=== PATIENT | female | born 1980 | race Caucasian/White ===

== ENCOUNTER → 2020-05-16 10:35 | Outpatient (BNVA) | payer BC, SELFPAY | PROVIDERS: Family Provider Electrodiagnostic Medicine; PCP Electrodiagnostic Medicine; Visit Provider Nurse Practitioner | DX: J02.9 Acute pharyngitis, unspecified (principal); F17.210 Nicotine dependence, cigarettes, uncomplicated | CPT/HCPCS: 87071; 87880 ==

== ENCOUNTER → 2020-10-24 12:22 | Outpatient (BNVA) | payer BC, SELFPAY | PROVIDERS: Family Provider Electrodiagnostic Medicine; PCP Electrodiagnostic Medicine; Visit Provider Nurse Practitioner | DX: J02.9 Acute pharyngitis, unspecified (principal) | CPT/HCPCS: 87071; 87880 ==

== ENCOUNTER → 2022-08-04 08:18 | Outpatient (BNVA) | payer BC, SELFPAY | PROVIDERS: PCP Electrodiagnostic Medicine; Referring Provider Dermatology; Visit Provider Podiatrist Foot & Ankle Surgery | DX: M84.375A Stress fracture, left foot, initial encounter for fracture (principal); R60.9 Edema, unspecified; M85.872 Other specified disorders of bone density and structure, left ankle and foot | CPT/HCPCS: 73630 ==

== ENCOUNTER → 2022-08-25 08:21 | Outpatient (BNVA) | payer BC, SELFPAY | PROVIDERS: PCP Electrodiagnostic Medicine; Visit Provider Podiatrist Foot & Ankle Surgery | DX: M84.375A Stress fracture, left foot, initial encounter for fracture (principal); M85.879 Other specified disorders of bone density and structure, unspecified ankle and foot; R60.9 Edema, unspecified | CPT/HCPCS: 73630 ==

== ENCOUNTER → 2023-07-05 13:10 | Outpatient (BNVA) | payer BC, SELFPAY | PROVIDERS: PCP Electrodiagnostic Medicine; Visit Provider Registered Nurse Neonatal Intensive Care | DX: S99.922A Unspecified injury of left foot, initial encounter (principal); X58.XXXA Exposure to other specified factors, initial encounter | CPT/HCPCS: 73610; 73630 ==

== ENCOUNTER 2024-09-02 12:05 | Outpatient (CLI) | payer BC, SELFPAY ==
--- NOTE | 2024-09-02 12:08 | MR_ITS ---
WS: [id number] MRI LEFT ANKLE WITH AND WITHOUT CONTRAST. COMPARISON: Radiographs 07/05/2023, 08/06/2024 Multiplanar, multisequence imaging is performed with and without contrast. MultiHance 13 mL IV. Distal tibia: Marrow edema in the distal tibia extends over a length of 4.5 cm to the tibial plafond. Lucency on the proton density and the T1 sequences extends partially through the distal lateral tibi a consistent with a fracture. This is probably partially healed. Severe narrowing of the tibiotalar j oint space. Small osteochondral defect along the tibial plafond. Very small low signal nodule in the medial tibiotalar joint space is probably a loose body. There is fluid and increased T2 signal along the syndesmosis and interosseous membrane. No marrow emil ma in the fibula. Calcaneus: Lucency seen radiographically in the calcaneus follows fat on all sequences without enhanc ement. 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 Normal Achilles tendon. Normal plantar fascia. Peroneal brevis and longus tendons extend along the normal course. No tear is identified. Flexor hallucis longus and the flexor hallucis and digitorum tendons are appropriate. Posterior tibia l tendon is normal. There is a large accessory navicular measuring 10 x 9 mm. This accessory navicular is slightly displa daren in the posterior tibial tendon but at this time there is no tear. Patient is at risk for posterio r tibial dysfunction. Enlarged sustentaculum mack. 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 Fluid along the anterior talofibular ligament. There is at least a partial tear. Posterior talofibula r ligament is normal. Normal appearance of the deltoid ligament. Spring ligament is identified extend ing from the navicular to the sustentaculum mack. The signal is normal but it is displaced by the la rge sustentaculum mack. MR/MR ankle LT wo/w con [id number] IMPRESSION: 1. Marrow edema in the distal tibia with an incomplete and partially healed fr acture in the tibial metaphysis. 2. Fluid in the interosseous membrane consistent with a syndesmosis injury. 3. Calcaneal lipoma. 4. Severe narrowing of the tibiotalar joint. Possible very tiny loose body in the medial tibiotalar joint. 5. 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 At this time the posterior tibial tendon is normal. Patient at risk fo r posterior tibial tendon dysfunction. 6. Markedly enlarged sustentaculum mack. 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 Obtaining a noncontrast CT of the LEFT foot may provide additional information. 7. Partial tear anterior talofibular ligament.
[2024-09-02] MEDS: gadobenate dimeglumine 20 mL vial IV (13:08)
== END 2024-09-02 12:06 | disposition home or self-care (01) ==
LOC: RAD 12:07
PROVIDERS: PCP Electrodiagnostic Medicine; Visit Provider Electrodiagnostic Medicine
DX: M85.60 Other cyst of bone, unspecified site (principal); D17.24 Benign lipomatous neoplasm of skin and subcutaneous tissue of left leg; M25.871 Other specified joint disorders, right ankle and foot; M89.372 Hypertrophy of bone, left ankle and foot
CPT/HCPCS: 73723

== ENCOUNTER 2024-09-05 12:39 | Outpatient (CLI) | payer BC, SELFPAY ==
--- NOTE | 2024-09-05 12:44 | XR_ITS ---
WS: [id number] DEXA (DUAL ENERGY X-RAY ABSORPTIOMETRY) Bone mineral density was performed using a [employer] machine. HISTORY: POSTMENOPAUSAL COMPARISON: None available. Lumbar spine BMD (L1-L4): 0.817 g/cm2 T score: -3.0 Z score: -3.1 Total hip BMD: Left: 0.616. T score: -3.0 Z score: -2.5 Right: 0.613 g/cm2. T score: -3.1 Z score: -2.5 10 year probability of a major osteoporotic fracture is 16.5%. XR/XR DEXA axial skeleton* [id number] IMPRESSION: OSTEOPOROSIS based upon the WHO classification for females.
== END 2024-09-05 12:40 | disposition home or self-care (01) ==
LOC: RAD 12:40
PROVIDERS: PCP Electrodiagnostic Medicine; Visit Provider Electrodiagnostic Medicine
DX: Z13.820 Encounter for screening for osteoporosis (principal); M81.0 Age-related osteoporosis without current pathological fracture
CPT/HCPCS: 77080

== ENCOUNTER 2024-10-24 07:55 | Outpatient (CLI) | payer BC, SELFPAY ==
--- NOTE | 2024-10-24 07:58 | MM_ITS ---
WS: [id number] BILATERAL SCREENING DIGITAL TOMOSYNTHESIS MAMMOGRAM WITH CAD HISTORY: SCREENING COMPARISON: None available. Bilateral CC and MLO views with tomosynthesis and synthetic mammography submitted. Computer aided det ection analyzed. Breast composition: The breasts are heterogeneously dense, which may obscure small masses. No suspici ous masses, microcalcifications or architectural distortion. MM/MM scr BI tomosynthesis [id number] IMPRESSION: BI-RADS: 1 - Negative FOLLOW UP: 1 Year Follow-up
== END 2024-10-24 07:56 | disposition home or self-care (01) ==
LOC: RAD 07:57
PROVIDERS: PCP Electrodiagnostic Medicine; Visit Provider Electrodiagnostic Medicine
DX: Z12.31 Encounter for screening mammogram for malignant neoplasm of breast (principal); R92.333 Mammographic heterogeneous density, bilateral breasts
CPT/HCPCS: 77063; 77067

== ENCOUNTER 2025-01-23 09:39 | Oncology outpatient (recurring) (ONCR) | payer BC, SELFPAY ==
[2025-01-23 10:01] VITALS: BP 143/92; PULSE 91; RESP 17; TEMP 36.2; O2SAT 98
[2025-01-23] MEDS: denosumab 60 mg SDV SUBCUT (10:12)
== END 2025-02-16 23:59 | disposition home or self-care (01) ==
LOC: ONCMED 09:41
PROVIDERS: PCP Electrodiagnostic Medicine; Visit Provider Electrodiagnostic Medicine
DX: M81.0 Age-related osteoporosis without current pathological fracture (principal); Z79.899 Other long term (current) drug therapy
CPT/HCPCS: 96372; J0897